=== PATIENT | male | born 1945 | race Caucasian/White ===

== ENCOUNTER → 2019-04-19 12:55 | Outpatient (CLI) | payer MEDICARE, SELFPAY ==
--- NOTE | 2019-04-19 13:00 | SP.MBSS_ITS ---
PRIMARY / SECONDARY DIAGNOSIS: dysphagia (R13.10) REFERRING PHYSICIAN: Dr. Godfrey Angeles MD CURRENT DIET: regular textures, thin liquids DENTITION: Natural, mandibular bridge missing MENTAL STATUS: WNL RESPIRATORY STATUS: O2 via room air REASON FOR REFERRAL: The Patient is a 74 year old male referred for a modified barium swallow (MBS) study to objectively assess the Patients oropharyngeal swallow function under fluoroscopy secondary to concerns for aspiration during ingestion following aspiration event visualized under fluoroscopy during a recently attempted barium swallow study / esophagram completed in [place] (results unavailable at time of assessment). MEDICAL HISTORY: Prior transient ischemic attack, status post pacemaker placement, arthritis, gastroesophageal reflux disease, hyperlipidemia (all per Patient report). PREVIOUS MODIFIED BARIUM SWALLOW STUDY: None. ASSESSMENT PARAMETERS: The Patient participated in a Modified Barium Swallow (MBS) study on 04/19/2019. Dr. Boss was the radiologist present for this evaluation. This study was recorded in the lateral view and images were sent to PACs for storage. Scoring was completed through each trial using the 8-point Penetration-Aspiration Scale (PAS) and summarized via the Modified Barium Swallow Impairment Profile (MBSImP) and the Bolus Residue Scale (BRS), with severity scoring through the Dysphagia Severity Rating Scale (DSRS) and the Swallowing Performance Scale (PSP), and recommended diet textures through the International Dysphagia Diet Standardisation Initiative (IDDSI). RESULTS OF THE EVALUATION: The Patient presents with mild pharyngeal dysphagia (DSRS: 2; SPS: 3) with transient shallow penetration with complete ejection during sequential ingestion of thin liquids. OBJECTIVE ASSESSMENT OF SWALLOW FUNCTION (QUANTITATIVE ? PER TRIAL): PENETRATION / ASPIRATION SCALE ([place]): 1 = does not enter airway 2 = enters airway/above vocal folds/ejected 3 = enters airway/above vocal folds/not ejected 4 = enters airway/contacts vocal folds/ejected 5 = enters airway/contacts vocal folds/not ejected 6 = enters airway/below vocal folds/ejected 7 = enters airway/below vocal folds/not ejected despite effort 8 = enters airway/below vocal folds/no effort PENETRATION / ASPIRATION SCALE (SCORE): Thin liquid - 5 mL tsp.: 1 Thin liquids via cup (single sip): 1 Thin liquids via cup (single sip): 1 Thin liquids via cup (sequential swallows): 2 Pudding via spoon: 1 Regular textured cookie: 1 Thin liquids via straw (sequential swallows): 1 OBJECTIVE ASSESSMENT OF SWALLOW FUNCTION (QUANTITATIVE ? AGGREGATE): MODIFIED BARIUM SWALLOW IMPAIRMENT PROFILE (MBSImP) LABIAL SEAL: 0 (of 4) no labial escape TONGUE CONTROL: 0 (of 3) cohesive bolus BOLUS PREPARATION / MASTICATION: 0 (of 3) timely and efficient BOLUS TRANSPORT / LINGUAL MOTION: 0 (of 4) brisk tongue motion ORAL RESIDUE: 1 (of 4) trace residue lining oral structures INITIATION OF PHARYNGEAL SWALLOW: 0 (of 4) posterior angle of ramus SOFT PALATE ELEVATION: 0 (of 4) no bolus between soft palate & pharyngeal wall LARYNGEAL ELEVATION: 0 (of 3) complete superior movement / approximation ANTERIOR HYOID EXCURSION: 0 (of 2) complete movement EPIGLOTTIC MOVEMENT: 1 (of 2) partial inversion LARYNGEAL VESTIBULE CLOSURE: 0 (of 2) complete closure PHARYNGEAL STRIPPING WAVE: 1 (of 2) present / diminished PE SEGMENT OPENIN (of 3) partial distension / duration / obstruction TONGUE BASE RETRACTION: 2 (of 4) narrow column of contrast PHARYNGEAL RESIDUE: 2 (of 4) collection of residue ESOPHAGEAL BOLUS CLEARANCE: could not view BOLUS RESIDUE SCALE (BRS): 4 (of 6) residue in valleculae and piriform sinus DYSPHAGIA SEVERITY RATING SCALE (DSRS): 2 (mild) SWALLOWING PERFORMANCE SCALE (SPS): 3 (mild) OBJECTIVE ASSESSMENT OF SWALLOW FUNCTION (QUALITATIVE): ORAL PREPARATORY PHASE: sufficient mastication rate and quality; sufficient anterior oral containment during presentation / manipulation; preserved management of breathing / bolus formation without disrupted E ? S ? E pattern. ORAL TRANSITIONAL PHASE: no presence of transitional incompetence; no bolus consolidation impairments; no presence of premature posterior bolus loss. PHARYNGEAL PHASE: no signs of pharyngeal dyssynchrony; appropriate hyolaryngeal excursion and laryngeal vestibule closure / pressure; sufficient / consistent laryngeal vestibule pressure generated to expel penetrated material; mild pharyngeal dysmotility with consolidation within the vallecula and pyriform sinus following semisolid and solid ingestion (cleared with liquid wash) with suboptimal upper esophageal segment opening impacted by cervical osteophytes; no signs of velopharyngeal impairments; ESOPHAGEAL PHASE: no obvious esophageal phase abnormalities observed. CONTRIBUTING / COMPLICATING FACTORS AND NOTABLE FINDINGS: prominent cervical osteophyte located at the C-5 C-6 level complicating pharyngoesophageal segment opening and overall pharyngoesophageal motility; RESPONSE TO STRATEGIES: all deficits managed successfully with reduction in bolus rate / volume adjustments in addition to alteration between solids and liquids. INTERVENTION RECOMMENDATIONS AND CONSIDERATIONS: May consider continued skilled speech-language intervention targeting diet texture management and training / implementation of recommended compensatory strategies; and considerations for training / implementation of recommended oropharyngeal strengthening exercises to facilitate improved pharyngeal motility, though motility may be impacted more so by mechanical factors that exercise based interventions would not effectively address; regardless this may improve some facets of pharyngeal motility and reduce the risk of post prandial aspiration if the Patient would desire to pursue this route. POST ASSESSMENT EDUCATION: Results and recommendations were discussed with the Patient immediately following MBS completion, with the Patient verbalizing understanding and agreement with all recommendations and education provided. I provided brief overview of signs and symptoms of aspiration, with recommendations for the Patient to further discuss symptoms with the Patients primary care provider. DIET TEXTURE RECOMMENDATIONS: Will recommend a regular ? soft textured (IDDSI: 6), thin liquid diet (IDDSI: 0) diet RECOMMENDED COMPENSATORY STRATEGIES: Reduced bolus volume / rate of ingestion, liquid chaser at reasonable intervals, seated upright at 90 degrees during PO intake, remain upright for 30-60 minutes post meal (GERD precaution) IMAGE COUNT: [id number] Marquis Lizama M.A., [employer] SERVICE SUPERVISOR, CBIS MBSImP Certified, LSVT Certified [facility] Speech-Language Pathology Department [email or web address]
--- NOTE | 2019-04-19 13:05 | RAD_ITS ---
STUDY: SWALLOWING STUDY REASON FOR EXAM: Male, 74 years old. Dysphagia. TECHNIQUE: The examination was performed with Speech Pathology in attendance. Under fluoroscopic observation, the patient ingested thin barium, thick barium, barium pudding, and barium coated cracker. FLUOROSCOPY TIME: 1:22 minutes/seconds. 1499 spot images were obtained. RADIOLOGIST INVOLVEMENT: Radiologist was present and providing direct supervision. COMPARISON: None. FINDINGS: The following was observed during swallowing of the various mixtures of barium: Thin Barium: Transient penetration with ingestion of thin liquids with sequential swallowing. Barium Pudding: There was no evidence of aspiration or laryngeal penetration. Barium Coated Cracker: There was no evidence of aspiration or laryngeal penetration. RAD/Swallowing Function w/Video IMPRESSION: Transient penetration with ingestion of thin liquids. The swallow study findings were discussed with the patient by the speech pathologist at the conclusion of the examination. Please see speech pathology report for more information and recommendations. Electronically Signed: Devonte Boss, at 14:35 EDT , Service support ,
== END ==
PROVIDERS: Family Provider Family Medicine; PCP Family Medicine; Referring Provider Internal Medicine Gastroenterology; Visit Provider Internal Medicine Gastroenterology
DX: R13.10 Dysphagia, unspecified (principal)
CPT/HCPCS: 74230; 92611